=== PATIENT | female | born 2005 | race Caucasian/White ===

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

== ENCOUNTER 2024-02-13 01:46 | Emergency (ER) | payer OTHER ==
[2024-02-13] MEDS ORDERED: Ketorolac Tromethamine 30 MG (1 mL) VIAL ONE (03:06)
[2024-02-13] MEDS ORDERED: Ondansetron PF 4 MG/2 ML Vial ONE (03:06)
[2024-02-13 06:47] LABS: Bacteria/HPF None Seen HPF (None Seen); Bilirubin Negative (Negative); Blood, Urine Negative (Negative); Clarity Clear (Clear); Glucose, Urine (Dipstick) Normal (Negative); Ketone, Urine Negative (Negative); Leukocyte Negative Leu/uL (Negative); Nitrite Negative (Negative); Protein, Urine (Dipstick) 10 mg/dL (Neg-Trace); RBC/HPF 0-3 HPF (0-3); Specific Gravity, Urine 1.027 (1.002-1.036); Squamous Epithelial 0-3 HPF (0-3); Urobilinogen 3 mg/dL (Less than 2)
[2024-02-13 06:50] LABS: ALT (SGPT) 17 U/L (8-55); AST (SGOT) 20 U/L (5-34); Albumin 4.2 g/dL (3.5-5.0); Alkaline Phosphatase 65 U/L (40-100); Anion Gap 12 mmol/L (10-20); BUN (Urea Nitrogen) 15 mg/dL (7.0-18.7); Bilirubin, Total 0.3 mg/dL (0.2-1.2); Calc. Creatinine Clearance 0 mL/min (70-130); Calcium 9.6 mg/dL (7.8-10.44); Carbon Dioxide 27 mmol/L (22-29); Chloride 103 mmol/L (98-107); Estimated GFR 88; Globulin 3.2 g/dL (2.4-3.5); Glucose 95 mg/dL (70-105); Lipase 19 U/L (8-78); Potassium 3.4 mmol/L (3.5-5.1); Protein, Total 7.4 g/dL (6.0-8.3); Sodium 139 mmol/L (136-145)
[2024-02-13 06:51] LABS: #Basophils 0.06 10x3/uL (0.0-0.2); #Eosinophils 0.22 10x3/uL (0.0-0.7); #Monocytes 0.62 10x3/uL (0.11-0.59); #Neutrophils 3.89 10x3/uL (1.40-6.50); %Basophils 0.8 % (0.0-1.0); %Monocytes 8.4 % (0.0-4.0); %Neutrophils 52.7 % (31.0-61.0); Hematocrit 37.3 % (36.0-47.0); Hemoglobin 12.8 g/dL (12.0-16.0); Mean Corpuscular HGB CONC 34.3 g/dL (32.0-36.0); Mean Corpuscular Hemoglobin 30.3 pg (25.0-35.0); Mean Corpuscular Volume 88.4 fL (78.0-98.0); Mean Platelet Volume 10.2 fL (7.4-10.4); Platelet Count 299 10x3/uL (130-400); RBC Distribution Width 12.2 % (11.5-14.5); Red Blood Cell (RBC) Count 4.22 mill/uL (4.00-5.20); White Blood Cell (WBC) Count 7.39 10x3/uL (4.8-10.8)
[2024-02-13 06:52] LABS: Pregnancy Test - Urine (BHCG) Negative (Negative); Pregu Control Background? CLEAR/WHITE (CLR/WHITE); Pregu Control Bar Appear? YES (CONTROL BAR); Specific Gravity 1.027 (1.002-1.036)
[2024-02-13 06:52] LABS: RBC Morphology Within Normal Limits
[2024-02-13] MEDS ORDERED: Iopamidol-370 76% 500 ML MDV (1 ML CHARGE) ONE (10:46)
== END 2024-02-13 05:44 | disposition home or self-care (01) ==
LOC: ERS 01:46 → MERGE 01:46 → ERS 05:44
DX: R11.2 Nausea with vomiting, unspecified (principal)
CPT/HCPCS: 74177; 80053; 81003; 81025; 83690; 85025; 87426; 96374; 96375; J1885; J2405; Q9967

== ENCOUNTER 2024-03-15 19:00 | Emergency (ER) | payer OTHER ==
[2024-03-15] MEDS ORDERED: Dexamethasone 4 MG TAB ONE (19:26)
[2024-03-15] MEDS ORDERED: Ondansetron ODT 4 MG TAB ONE (19:26)
[2024-03-15] MEDS ORDERED: Ibuprofen 800 MG TAB ONE (19:26)
== END 2024-03-15 20:36 | disposition home or self-care (01) ==
LOC: ERS 19:00
DX: J10.1 Influenza due to other identified influenza virus with other respiratory manifestations (principal)
CPT/HCPCS: 71045; 87428; J8540; Q0162

== ENCOUNTER 2024-05-07 13:16 | Emergency (ER) | payer OTHER | END 2024-05-07 14:46 | disposition home or self-care (01) | LOC: ERS 13:16 | DX: R21 Rash and other nonspecific skin eruption (principal) | CPT/HCPCS: 99282 ==